=== PATIENT | female | born 1940 ===

== ENCOUNTER 2024-09-06 10:25 | Day surgery (SDC) | payer OTHER, SELFPAY ==
[2024-09-06] VITALS (10 sets, daily range): BP systolic 87–111; BP diastolic 48–88; BMI 18.5
[2024-09-06 11:27] LABS: Hematocrit 37.4 % (37.0-47.0); Hemoglobin 11.9 g/dL (12.0-16.0); Mean Corp Hgb Conc. 31.8 g/dL (33.0-37.0); Mean Corpuscular Hgb 30.1 pg (27.0-31.0); Mean Corpuscular Volume 94.4 fL (81.0-99.0); Mean Platelet Volume 11.9 fL (7.4-10.4); Platelet Count 250 10^3/uL (130-400); Red Blood Cell Count 3.96 10^6/uL (4.20-5.40); White Blood Cell Count 4.9 10^3/uL (4.8-10.8)
[2024-09-06 11:55] LABS: ALT (SGPT) 27 U/L (0-35); AST (SGOT) 60 U/L (14-36); Albumin 4.3 g/dl (3.5-5.0); Alkaline Phosphatase 158 U/L (38-126); Blood Urea Nitrogen 52 mg/dl (7-17); Calcium 9.3 mg/dl (8.4-10.2); Carbon Dioxide 25 mmol/L (22-30); Chloride 100 mmol/L (98-107); Estimated Creatinine Clearance 19 ml/min; Glucose 88 mg/dl (70-99); Sodium 135 mmol/L (135-145); Total Bilirubin 2.9 mg/dl (0.2-1.3); Total Protein 7.3 g/dl (6.3-8.2)
--- NOTE | 2024-09-06 12:50 | ITS.CL.PACE ---
Insulating Machine Operator - Pacemaker Implant
Pacemaker Implant
Procedure Report:
PACEMAKER IMPLANT REPORT
Primary Care Provider: Lamine Carr MD
Primary core composer feeder: Dr Lalo Wolf
Date of Procedure: September 06, 2024
Procedure:
Implantation of dual-chamber permanent pacemaker utilizing the left bundle branch for conduction system pacing
Indication/Diagnosis:
Non-reversible symptomatic bradycardia due to sinus node dysfunction with tachycardia-bradycardia syndrome.
She has permanent atrial fibrillation with rates that are often poorly controlled (tachycardia�bradycardia syndrome). Rapid ventricular rates have led to episodes of decompensated congestive heart failure. Unable to control her heart rates
consistently and adequately with medical therapy she is now referred for implantation of a permanent pacemaker followed by eventual AV kenji ablation.
After informed consent was obtained, 'time out' was called and confirmed, the patient was prepped and draped in a sterile fashion. Lidocaine with epi was used for local anesthesia. Central venous access was obtained via subclavian venipuncture. An
incision was made along the left chest and a pre-pectoral pocket was formed. Using a Seldinger technique and peel-away sheaths, the pacing leads were placed under fluoroscopic guidance.
Fluoroscopy was used to determine likely anatomic site for left bundle branch pacing. The Medtronic C315 sheath was used to deliver the Medtronic 3830 Selectsecure pacing lead with the helix exposed just exposed from the sheath tip during continuous
monitoring when pacemapping the septum during gentle clockwise rotation to obtain a paced QRS morphology of a W pattern in lead V1. Once the suspected optimal site was identified, lead deployment was performed with several rapid rotations as paced
QRS morphology was intermittently monitored until a paced QRS complex in lead V1 demonstrated development of an R wave, qR.
Unipolar pacing impedance dropped by approximately 100 ohms suggesting it had reached the left ventricular subendocardial.
Stable VEgm injury current is present throughout final lead position including at end of case, suggesting there was no perforation through the septum into the LV cavity.
Unipolar pacing impedance is 1000 Ohms
Unipolar pacing threshold is stable at 0.75 V @ 0.4 ms. Bipolar pacing threshold is also 0.75 at 0.4 ms
Final conduction system paced QRS complex duration is 102] ms
LVAT is 87 ms
Once testing (see below) showed adequate and stable function, the leads were secured using the suture sleeves. The pocket was liberally irrigated with antibiotic solution. The leads were connected to the generator header and the leads and
generator were placed within the pocket. Fluoroscopy confirmed stable lead position. The pocket was closed in the typical fashion.
Fluoroscopy was used to guide lead placement.
IMPLANTS:
Medtronic [id number], SN: [id number], Left Pectoral
Left Bundle: Medtronic 3830 , SN:[id number], Interventricular septum at LBB
DEVICE TESTING:
Sensing: RV 14 mV
Capture: RV 0.75 V@0.4ms
Ohms: RV 1045
FINAL PROGRAMMING
Amos Pacing: VVIR 60-130 ppm
COMPLICATIONS:
None
CONCLUSIONS:
Successful implant of single chamber permanent pacemaker utilizing Left Bundle Branch conduction system capture for ventricular resynchronization pacing.
RECOMMENDATIONS:
1. Post-op care (tele, CXR, IV abx)
2. In-Office wound check in 5-7 days
3. Return for AV node ablation October 03, 2023
Copy to:
Lamine Carr MD
Dr Lalo Wolf
[2024-09-06] MEDS: ALDACTONE 25 MG PO (15:43)
--- NOTE | 2024-09-06 15:48 | PTCARENOTE ---
Assumed care of pt upon tsf from CCL post PPM implant. Pt arrives awake and alert, Ox3. VSs, CM shows FE73-343's, POX 94% on RA. Single chamber Hiss lead PPM intact to left chest wall with Aquacel and compression dsg, immobilizer intact. Pt
denies any pain or discomfort at this time. Limb restrictions reviewed with pt.
--- NOTE | 2024-09-06 16:04 | CM ---
Chart reviewed. Patient is independent of ADLS, lives at [facility], ambulates with a RW and has elevator access. Plan is for the patient to return home. CM to follow
[2024-09-06] MEDS: NON-FORMULARY ITEM 75 MG PO (17:33)
[2024-09-06] MEDS: ProAmatine 5 MG PO (17:34)
[2024-09-06] MEDS: COLACE 100 MG PO (17:36)
[2024-09-06] MEDS: ANCEF 5 IV (18:12)
[2024-09-06] MEDS: TYLENOL 650 MG PO ×2 (18:12→22:32)
--- NOTE | 2024-09-06 18:33 | PTCARENOTE ---
Tylenol given as per NOV for 12/28 pain.
[2024-09-06] MEDS: LOPRESSOR 50 MG PO (19:55)
--- NOTE | 2024-09-06 21:09 | PTCARENOTE ---
Received pt at change of shift. Afib on the monitor, HR in the 90s. VSS. L chest aquacel and pressure dressing in place, no evidence of hematoma. No complaints from pt at this time, call morgan within reach.
[2024-09-07 03:08] VITALS: BP 95/64
[2024-09-07] MEDS: ANCEF 5 IV (03:12)
[2024-09-07 04:19] LABS: Hematocrit 34.7 % (37.0-47.0); Hemoglobin 11.6 g/dL (12.0-16.0); Mean Corp Hgb Conc. 33.4 g/dL (33.0-37.0); Mean Corpuscular Hgb 30.6 pg (27.0-31.0); Mean Corpuscular Volume 91.6 fL (81.0-99.0); Mean Platelet Volume 12.7 fL (7.4-10.4); Platelet Count 186 10^3/uL (130-400); Red Blood Cell Count 3.79 10^6/uL (4.20-5.40); Red Cell Dist. Width 17.1 % (11.5-14.5); White Blood Cell Count 6.1 10^3/uL (4.8-10.8)
[2024-09-07 05:32] LABS: Blood Urea Nitrogen 50 mg/dl (7-17); Calcium 8.7 mg/dl (8.4-10.2); Carbon Dioxide 17 mmol/L (22-30); Chloride 102 mmol/L (98-107); Estimated Creatinine Clearance 19 ml/min; Glucose 81 mg/dl (70-99); Magnesium 2.6 mg/dl (1.6-2.3); Sodium 133 mmol/L (135-145)
[2024-09-07] MEDS: SYNTHROID 75 MCG PO (05:58)
[2024-09-07] MEDS: LOPRESSOR 50 MG PO (07:17)
[2024-09-07] MEDS: PROTONIX 40 MG PO (07:17)
[2024-09-07] MEDS: FARXIGA 10 MG PO (07:17)
[2024-09-07 07:18] VITALS: BP 112/78
[2024-09-07] MEDS: ProAmatine 5 MG PO (07:21)
[2024-09-07 09:07] VITALS: BP 104/70
[2024-09-07] MEDS: LOPRESSOR 25 MG PO (09:09)
--- NOTE | 2024-09-07 09:22 | W.PN.CARDCBS ---
Addendum entered and electronically signed by Brock Daly MD 09/07/24 09:46:
Patient seen and examined
Agree with ASSEMBLY ASSOCIATE note and assessment
Agree with ASSEMBLY ASSOCIATE plan
Exam:
Pacemaker site clean dry and intact
Chest x-ray demonstrates stable lead position
Cor irregularly irregular
Telemetry reviewed
Agree with ASSEMBLY ASSOCIATE examination
Primary Care Provider: Lamine Carr MD
Primary pear picker: Dr Lalo Wolf
Impression:
Permanent Atrial fibrillation
Tachycardia-bradycardia syndrome
post DC PPM Medtronic 09/06/24
Chronic HFpEF
Severe MR
HLD
h/o LLE DVT post IVCF
orthostasis
Plan:
post PPM, site stable old drainage marked
tele Afib HR 90-120s
CXR no PTX
[id number] = 6
Will trial increasing metoprolol to 75mg bid, continue digoxin
Resume OAC tonight
Activity restrictions reviewed
Incision check 1 week
Plan to return for AVJ ablation 10/03/24
stable for home today
Lives alone, CM to set up VNA
Original Note:
Today's Communication / Plan
-
post PPM, Afib with uncontrolled rates
increase metoprolol 75mg bid
plan for AVJ ablation in 3 weeks
Impression / Plan
-
Primary Care Provider: Lamine Carr MD
Primary pear picker: Dr Lalo Wolf
Impression:
Permanent Atrial fibrillation
Tachycardia-bradycardia syndrome
post DC PPM Medtronic 09/06/24
Chronic HFpEF
Severe MR
HLD
h/o LLE DVT post IVCF
orthostasis
Plan:
post PPM, site stable old drainage marked
tele Afib HR 90-120s
CXR no PTX
[id number] = 6
Will trial increasing metoprolol to 75mg bid, continue digoxin
Resume OAC tonight
Activity restrictions reviewed
Incision check 1 week
Plan to return for AVJ ablation 10/03/24
stable for home today
Lives alone, CM to set up VNA
Progress Note - Aircraft Electrical Systems Specialist
Subjective
Date of Service: September 07, 2024
no cp, mild inc pain relief with tylenol
Objective
Labs:
09/07/24 03:36
09/07/24 03:36
Labs
Hgb 11.6 g/dL (12.0-16.0) L 09/07/24 03:36
Hct 34.7 % (37.0-47.0) L 09/07/24 03:36
Plt Count 186 10^3/uL (130-400) D 09/07/24 03:36
Sodium 133 mmol/L (135-145) L 09/07/24 03:36
Potassium 5.0 mmol/L (3.5-5.1) 09/07/24 03:36
BUN 50 mg/dl (7-17) H 09/07/24 03:36
Creatinine 1.6 mg/dL (0.6-1.0) H 09/07/24 03:36
Glucose 81 mg/dl (70-99) 09/07/24 03:36
Vital Signs and I&O:
Vital Signs
Temp Pulse Resp BP Pulse Ox
98.3 F 101 20 95/64 94
09/07/24 07:49 09/07/24 03:45 09/07/24 07:49 09/07/24 03:08 09/07/24 07:49
Vital Signs
Temp Pulse Resp BP Pulse Ox
98.3 F 101 20 95/64 94
09/07/24 07:49 09/07/24 03:45 09/07/24 07:49 09/07/24 03:08 09/07/24 07:49
Physical Exam
Physical Exam
NAD< AOX3
S1, S2, irreg irreg, 11/23 EDWINA
diminished b/l bases with fine crackles
SNTND bsx4
L CW dressing with marked old drainage, no HT
--- NOTE | 2024-09-07 10:22 | CM ---
CM following for DC planning needs.
Met w/ patient at bedside. VN ordered; discussed w/ patient.
Pt. resides at [facility] and would like to use their VN. Call to the community and spoke w/ program director/music director. They use [facility].
Call to [facility] to initiate referral, sent referral via fax.
Plan is to DC to home w/ [facility].
[2024-09-07 11:10] VITALS: BP 96/68
[2024-09-07 11:13] VITALS: BP 96/68
--- NOTE | 2024-09-07 11:23 | W.DS.TRANS ---
DC Summary - Radiologic Technology Program Director
-
Discharge Instructions:
Sleep Apnea Risk Low
Discharge Diagnosis/Procedures Pacemaker implant
Diet Low Cholesterol
Driving Restrictions No driving for 1 week
Bathing Restrictions OK to Shower
Instructions:
Stand-Alone Forms: DC Inst - Implanted Device
Changes to Home Medications: Yes
Discharge Medications:
DC Medications w/original date entered in [employer]
apixaban 5 mg tablet (Eliquis) 5 mg PO BID 09/06/24
digoxin 125 mcg (0.125 mg) tablet 125 mcg PO MOTH@1900 09/06/24
docusate sodium 50 mg capsule 50 mg PO DAILY 09/06/24
eltrombopag olamine 50 mg tablet (Promacta) 75 mg PO Q OTHER DAY 09/06/24
empagliflozin 10 mg tablet (Jardiance) 10 mg PO DAILY 09/06/24
furosemide 40 mg tablet 40 mg PO MOWEFR 09/06/24
levothyroxine 75 mcg capsule 75 mcg PO DAILY 09/06/24
midodrine 5 mg tablet 5 mg PO TID 09/06/24
pantoprazole 40 mg tablet,delayed release 40 mg PO DAILY 09/06/24
spironolactone 25 mg tablet 25 mg PO MOWEFR 09/06/24
metoprolol tartrate 50 mg tablet 75 mg (1.5 x 50 mg) PO BID #0 tabs 09/07/24
Home Medication Changes
increase metoprolol to 75mg bid
Pending Results: No
--- NOTE | 2024-09-07 13:05 | PTCARENOTE ---
Pt received this am with no c/o of any pain or discomfort. Left chest incision clean dry and intact with aqucell intact. Pressure dressing removed this am. Left arm immobilizer intact and removed prior to discharge. Pt discharged to home with her
daughter. Discharge instructions given and reviewed with good understanding.
== END 2024-09-07 12:59 | disposition home or self-care (01) ==
LOC: CATH 10:25
PROVIDERS: Nurse Practitioner Adult Health; ATTENDING PHYSICIAN Internal Medicine Cardiovascular Disease; FAMILY PHYSICIAN Family Medicine
DX: I49.5 Sick sinus syndrome (principal); I48.21 Permanent atrial fibrillation; Z79.01 Long term (current) use of anticoagulants; Z79.899 Other long term (current) drug therapy; Z79.890 Hormone replacement therapy; Z79.84 Long term (current) use of oral hypoglycemic drugs
CPT/HCPCS: 33208; 33207; 71045; 80048; 80053; 83735; 85027; 93005; C1769; C1786; C1887; C1892; C1898; Q9967

== ENCOUNTER 2024-10-02 17:48 | Inpatient (IN) | payer OTHER, SELFPAY ==
[2024-10-02 18:04] VITALS: BP 118/45
[2024-10-02 18:56] VITALS: BP 113/97
--- NOTE | 2024-10-02 19:27 | PTCARENOTE ---
Receved pt from [facility] via ambulance transport. VSS. Pt AAO x 3. Right brachial midline, from [facility], noted to be intact. Cardiology notified of admission.
[2024-10-02 22:13] LABS: Troponin I 0.045 ng/ml
[2024-10-02 22:35] VITALS: BP 111/74
[2024-10-02] MEDS: COLACE 100 MG PO (22:50)
[2024-10-03] VITALS (20 sets, daily range): BP systolic 72–124; BP diastolic 37–103; PULSE 87; O2SAT 93; BMI 18.6
--- NOTE | 2024-10-03 00:53 | HPS.HSE ---
Family Physician
-
Family Physician: NOT KNOW UNKNOWN - PT DOES
Chief Complaint
-
Late Entry - Patient seen and examined on 10/02/24 @ 8:30 PM.
SOB / Weakness
History of Present Illness
Patient is an 84y F with PMH significant for A-Fib, CHFpEF, hypothyroidism and hypotension who presents to as transfer from [facility] where she was originally admitted on 09/30/24 after a fall at home. Patient states that she had a fall with no
significant injury or trauma. She denies any prodrome of lightheadedness, chest pain, dyspnea, etc prior to the fall. No LOC or head injury. She was evaluated at [facility] where she was admitted for SOB and hypoxemia. Patient was treated for CHF and
also received IV abx for suspected RLL pneumonia. Patient received several days of IV diuresis and states that her dyspnea significantly improved. She had been scheduled for AV ablation here at on 10/03/24 and arrangements were made for her
transfer for that procedure.
Patient seen and examined in IVU where she is resting comfortably. She has no complaints at present.
She denies any chest pain, dyspnea, cough, fevers / chills, etc.
Medical History
Past Medical History
Past Medical History: Reports Other
Additional Past Medical History:
Permanent Atrial Fibrillation
Chronic HFpEF
Severe Mitral Regurgitation
Hypothyroidism
Hypotension
GERD
History of DVT
Past Surgical History: Reports Other
Additional Past Surgical History:
JEET
PPM Placement
Left Lumpectomy (benign)
Social History
Tobacco: Former Smoker (Quit smoking > 40 years ago.)
Alcohol: Occasional
Family History
Family History: Not pertinent
Allergies / Home Medications
Allergies reflects when Allergies were last updated in [employer].
Home Medications with original date entered in [employer]
Allergy/Medication List:
Allergies
Allergy/AdvReac Type Severity Reaction Status Date / Time
amiodarone Allergy Mild Shortness Verified 09/06/24 10:55
of Breath
Home Medications
apixaban 5 mg tablet (Eliquis) 5 mg PO BID 09/06/24
digoxin 125 mcg (0.125 mg) tablet 125 mcg PO MOTH@1900 09/06/24
docusate sodium 50 mg capsule 100 mg PO HS 09/06/24
eltrombopag olamine 50 mg tablet (Promacta) 75 mg PO Q OTHER DAY 09/06/24
furosemide 40 mg tablet 40 mg PO MOWEFR 09/06/24
levothyroxine 75 mcg capsule 75 mcg PO DAILY 09/06/24
midodrine 5 mg tablet 5 mg PO TID 09/06/24
pantoprazole 40 mg tablet,delayed release 40 mg PO DAILY 09/06/24
spironolactone 25 mg tablet 25 mg PO MOWEFR 09/06/24
metoprolol tartrate 50 mg tablet 50 mg PO BID 10/02/24
Review of Systems
-
History Source: Patient
A 12 point ROS was completed and negative except as noted: Yes
Constitutional: Denies Fever or Chills
Respiratory: Denies Cough or Trouble Breathing
Cardiac: Denies Chest Pain or Palpitations
Abdomen/GI: Denies Abdominal Pain, Nausea, Vomiting or Diarrhea
: Denies Dysuria or Flank Pain
Musculoskeletal: Denies Joint Pain or Edema
Neurological: Denies Dizzy or Headache
Psych: Denies Depression or Anxiety
Physical Exam
Vital Signs
Vital Signs
Temp Pulse Resp BP Pulse Ox
98.6 F 107 18 111/74 93
10/02/24 23:03 10/03/24 00:00 10/02/24 23:03 10/02/24 22:35 10/02/24 23:03
Physical Exam
General: Other (84y F in no acute distress.)
HEENT: Moist mucous membranes, PERRLA and Other (No JVD.)
Respiratory: Other (Few bibasilar rales < 1/4 up. No wheeze / rhonchi.)
Cardiac: S1/S2, Irregular Rhythm, Tachycardia and Murmur (II/ EDWINA)
GI: Soft, Non Tender, Non Distended and Normal Bowel Sounds
Musculoskeletal: No Clubbing, No Cyanosis and No Edema
Neuro: AO x 3
Laboratory Results
-
Laboratory Results
Troponin I 0.045 ng/ml H* 10/02/24 21:17
Impression/Plan
-
A/P: Patient is an 84y F with PMH significant for A-Fib, CHF and hypotension who presents to as transfer from [facility] for valuation of A-Fib with [id number] rates and CHF.
Permanent Atrial Fibrillation with Rapid Ventricular Response
- Admitted to IVU for further evaluation.
- Has failed multiple efforts at rate / rhythm control including amio which caused pulmonary toxicity.
- CHF exacerbated by poor rate control as noted below.
- Patient is scheduled for AV node ablation 10/03/24.
- Cardiology / EP consultation for additional recommendations / management.
- Continue current rate control medications for now.
- Hold Eliquis pending intervention / procedure.
Acute on Chronic HFpEF
- s/p several days of IV diuresis at [facility] and clinically much improved.
- Does not appear grossly volume overloaded at present.
- Was on IV Lasix 40mg BID - will decrease to daily dosing for now and follow I/Os, daily weights, etc.
- Transition back to PO regimen if volume status remains stable.
- Cardiology evaluation as noted above.
Possible RLL Pneumonia
- Was on abx at [facility] for possible RLL pneumonia.
- Afebrile, non-toxic appearing and with no cough or other symptoms that cannot be attributed to CHF.
- CXR findings likely represent compressive atelectasis secondary to pleural effusion.
- CT done at [facility] (09/30/24) with no mention of infiltrate / opacity / pneumonia.
- Would observe off of further abx for now and continue to treat Cardiac issues.
Chronic Hypotension
- Stable. Tolerating diuresis at [facility] very well.
- Continue current midodrine.
Hypothyroidism
- Stable. Continue T4 supplementation.
DVT Prophylaxis
History of DVT
- SCDs while Eliquis on hold. Resume when OK with Cardiology. Patient has IVC Filter in place.
Code Status: Full
[2024-10-03 03:14] LABS: Hemoglobin 11.1 g/dL (12.0-16.0); Mean Corp Hgb Conc. 31.7 g/dL (33.0-37.0); Mean Corpuscular Hgb 27.5 pg (27.0-31.0); Mean Corpuscular Volume 86.8 fL (81.0-99.0); Platelet Count 244 10^3/uL (130-400); Red Blood Cell Count 4.03 10^6/uL (4.20-5.40); Red Cell Dist. Width 17.4 % (11.5-14.5); White Blood Cell Count 5.4 10^3/uL (4.8-10.8)
[2024-10-03 03:36] LABS: Blood Urea Nitrogen 44 mg/dl (7-17); Calcium 8.4 mg/dl (8.4-10.2); Carbon Dioxide 25 mmol/L (22-30); Chloride 97 mmol/L (98-107); Estimated Creatinine Clearance 16 ml/min; Glucose 91 mg/dl (70-99); Magnesium 2.2 mg/dl (1.6-2.3); Phosphorus 3.6 mg/dl (2.5-4.5); Sodium 134 mmol/L (135-145); eGFR 27.78
[2024-10-03 03:49] LABS: Troponin I 0.043 ng/ml
--- NOTE | 2024-10-03 04:12 | PTCARENOTE ---
Pt received at change of shift. Afib on tele with HRs low 100s, occasionally up to 140s with activity. No complaints of pain or SOB at this time. RUE midline from GV[facility] flushed and dressing c/d/i, site documented in worklist. LUE dressing removed
and wound assessed and documented. Skin tear present, cleansed with saline and redressed, new dressing remains c/d/i. Ambulating with stand-by assist and rolling walker. Plan of care and pt verbalizes understanding. NPO since midnight for
ablation in AM. Call morgan within reach.
--- NOTE | 2024-10-03 07:46 | CON.CAR ---
Addendum entered and electronically signed by Davonte Wilburn MD 10/03/24 09:32:
Patient seen, interviewed and examined by me.
Not acute distress
Irregular rate and rhythm with normal S1 and S2, no S3 no S4. There is a grade 1/6 apical holosystolic murmur and no rubs. PMI is normally placed.
Lungs are clear to auscultation bilaterally without wheezes rales or rhonchi.
Abdomen soft nontender nondistended with normoactive bowel sounds
Extremities show trace pretibial edema bilaterally no clubbing or cyanosis.
Neurologic exam is grossly nonfocal.
She has had multiple recurrences of heart failure exacerbated by atrial fibrillation with rapid ventricular rates. Despite pacemaker implantation and attempted up titration of AV kenji blocking agents she continues to have exacerbations of
congestive heart failure related to rapid ventricular rates. Hypotension has limited the up titration of AV kenji blocking agents to some degree. Given difficulty in controlling her ventricular rates which have resulted in congestive heart
failure, I recommended that we proceed next towards AV kenji ablation. Of note she recently had permanent pacemaker implanted September 06, 2024. There had been plan as an outpatient for AV kenji ablation. She presented to [facility]
several days ago with exacerbation of heart failure and rapid ventricular rates and therefore was transferred rather urgently to get her AV node ablation done today. Regarding her heart failure, she has been diuresed at [facility] and
symptoms have improved significantly. Furthermore there have been some concern for pneumonia and she received essentially prophylactic antibiotics for several days, now off of antibiotics and afebrile. It is likely that the majority of her
symptoms are related to congestive heart failure which are now improved with diuresis. Continue IV diuresis for now and consideration to change to oral diuretics after AV kenji ablation.
Original Note:
Consultation
Consultation Request
Date/Time Consultation Performed: 10/03/24
Requesting Provider: Dr. Morataya
Performing Provider: Ana Green PA-C for Dr. Loc Wilburn
Reason for Consultation: AVJ ablation
Medical History
-
Chief Complaint: fall
History of Present Illness:
Patient is an 84 yo F with PMH of HFpEF, afib, CKD, anemia, hypothyroidism who presented to [facility] on 09/30/24 due to a fall at home. Reports she had been feeling weak and fell on her buttocks and had a LUE skin tear. Denies hitting her head or LOC with
event. She was admitted for SOB and hypoxia - diuresed with IV lasix and treated with abx for possible PNA. Reports her breathing is much improved. She also had mild troponin elevation at [facility], troponin 57�equivalent to 0.057 by assay here. No
chest pain. She was transferred to last evening as she is scheduled for AVJ ablation today with Dr. Loc Wilburn. She already has PPM in place. She has been NPO since midnight. Currently in afib with suboptimal HRs. Primary clinical laboratory technologist is
Luciano.
PMH:
Chronic heart failure preserved EF
Severe MR
Permanent atrial fibrillation
s/p Medtronic single chamber pacemaker 09/06/24
CKD
DVT/PE s/p IVC filter
Chronic anemia
Hypothyroidism
Orthostatic hypotension
History of concern for Amio lung toxicity
History of SIADH
History of hysterectomy
Past Medical History
Past Medical History: Other (in HPI)
Social History
Tobacco: Former Smoker
Alcohol: Occasional
Employment: Retired
Family History
Family History: Other (afib)
Allergies / Home Medications
Allergy/AdvReac Type Severity Reaction Status Date / Time
amiodarone Allergy Mild Shortness Verified 09/06/24 10:55
of Breath
�Medication �Instructions �Recorded �Confirmed �Type
apixaban 5 mg tablet (Eliquis) 5 mg PO BID 09/06/24 10/02/24 History
digoxin 125 mcg (0.125 mg) tablet 125 mcg PO MOTH@1900 09/06/24 10/02/24 History
docusate sodium 50 mg capsule 100 mg PO HS 09/06/24 10/02/24 History
eltrombopag olamine 50 mg tablet 75 mg PO Q OTHER DAY 09/06/24 10/02/24 History
(Promacta)
furosemide 40 mg tablet 40 mg PO MOWEFR 09/06/24 10/02/24 History
levothyroxine 75 mcg capsule 75 mcg PO DAILY 09/06/24 10/02/24 History
midodrine 5 mg tablet 5 mg PO TID 09/06/24 10/02/24 History
pantoprazole 40 mg tablet,delayed 40 mg PO DAILY 09/06/24 10/02/24 History
release
spironolactone 25 mg tablet 25 mg PO MOWEFR 09/06/24 10/02/24 History
metoprolol tartrate 50 mg tablet 50 mg PO BID 10/02/24 10/02/24 History
Review of Systems
-
History Source: Patient
All other systems: Negative unless noted
Physical Exam
Vital Signs
Temp Pulse Resp BP Pulse Ox
98.2 F 121 16 104/74 98
10/03/24 07:27 10/03/24 02:33 10/03/24 07:27 10/03/24 02:33 10/03/24 07:27
Lab Results
10/03/24 03:04
10/03/24 03:04
Troponin I 0.043 ng/ml H* 10/03/24 03:04
Physical Exam
General: No Apparent Distress and Comfortable
HEENT: Normocephalic, Anicteric and Moist Mucous Membranes
Respiratory: Clear and Non Labored Respirations
Cardiac: S1/S2, Irregular Rhythm and Murmur
GI: Soft, Non Tender, Non Distended and Normal Bowel Sounds
Musculoskeletal: No Clubbing, No Cyanosis and No Edema
Skin: Warm and Dry
Neuro: AO x 3
Impression / Plan
-
Primary Test Fixture Designer: Dr. Wolf
Primary EP: Dr. Loc Wilburn
Assessment:
Permanent atrial fibrillation with suboptimal HR control
Admitted to [facility] 09/30/24 for fall, CHF
Transferred to 10/02/24 for preplanned AVJ ablation on 10/03/24
s/p Medtronic single chamber pacemaker 09/06/24
Chronic heart failure preserved EF
Severe MR
CKD
DVT/PE s/p IVC filter
Chronic anemia/MDS
Hypothyroidism
Orthostatic hypotension
History of concern for Amio lung toxicity
History of SIADH
History of hysterectomy
Severe protein calorie malnutrition
ECHO 05/16/24: EF 55 to 60%, moderate TR, severe MR, moderate AI
Plan:
-Patient presented to [facility] 09/30/2024 with a fall and was found to be hypoxic and admitted for acute heart failure and diuresed. She reports feeling much improved. She was transferred to [facility] last evening in preparation
for preplanned AVJ ablation scheduled for today 10/03/2024
-reviewed records from [facility] admission from 09/30-10/02/24 including progress notes, EKGs, Chest CT, bloodwork
-N.p.o. for AVJ today
-Status post Medtronic single-chamber pacemaker 09/06/2024
-Eliquis on hold. Would resume postprocedure as able. Of note she came in on Eliquis 5 mg twice daily, however based on age, weight, and Cr should be on 2.5 mg twice daily.
-proBNP at [facility] was [id number]. [address] with mod R pleural effusion and small L pleural effusion. on room air. Would consider transition to p.o. Lasix in next 24-48 hours. Currently on 40 mg IV daily. Prior to admission was on 40 mg Wednesday
Wednesday.
-For rate control is currently on Lopressor 75 mg twice daily and digoxin 125 mcg p.o. Wednesday and . Will determine rate control regimen post AVJ
-Was also on spironolactone 25 mg p.o. Wednesday prior to admission, which is presently on hold. Cr 1.8, baseline unknown
-She has orthostatic hypotension and is chronically on midodrine 5 mg 3 times daily. follow post procedure
-last echo from 04/2024 as above
-unclear if she is felt to be a candidate for mitraclip, consider eval
-d/w nursing
Data Reviewed
-
EKG: Tracing Personally Visualized and interpreted
CT Scan: Report Reviewed by me
Medical Tests (Nuc Med, Echo etc): Report Reviewed by me
Labs: Labs Reviewed by me
Old Records: Reviewed
--- NOTE | 2024-10-03 07:50 | PTCARENOTE ---
Assumed care of pt from prev nsg shift; Pt AAOX3 w/no c/o CP or SOB. Pt w/VS stable w/HR in the 90's-110's at rest & in the 120's-130's w/activity. Pt's BP 105/71 this AM. Pt is Afib w/RVR on telemetry. Pt NPO since 0000 for cardiac ablation this
AM. Plan of care discussed w/pt & questions answered. Pt w/call morgan within reach & plan of care ongoing.
--- NOTE | 2024-10-03 08:51 | W.PN.UPDATE ---
Update Note
Progress Note Update
Non-billable addendum (H&P submitted around 1230 AM)
Patient admitted at [facility] for acute CHF and possible PNA
transferred here for AVJ ablation for Afib (hx of PPM)
Assessment:
Permanent Atrial Fibrillation with Rapid Ventricular Response
- Has failed multiple efforts at rate / rhythm control including amio which caused pulmonary toxicity.
- CHF exacerbated by poor rate control
- noted does have a PPM
- Patient is NPO for AV node ablation 10/03/24.
- Cardiology/EP following
- Continue metoprolol/digoxin for now.
- Hold Eliquis pending intervention/procedure.
Acute on Chronic HFpEF
- s/p several days of IV diuresis at [facility] and clinically much improved.
- Does not appear grossly volume overloaded at present.
- continue IV Lasix 40mg daily - requires intensive monitoring of I/Os, weights, lytes.
- likely transition back to PO regimen in 24-48 hours
- continue BB, hold Aldactone
- Cardiology following
Possible RLL Pneumonia
- Was on abx at [facility] for possible RLL pneumonia.
- Afebrile, non-toxic appearing and with no cough or other symptoms that cannot be attributed to CHF.
- CXR findings likely represent compressive atelectasis secondary to pleural effusion.
- CT done at [facility] (09/30/24) with no mention of infiltrate / opacity / pneumonia.
- continue to observe off of further abx for now and continue to treat Cardiac issues.
Suspected CKD 3b
- monitor Cr
Nonischemic myocardial injury in setting of rapid Afib (in setting of CKD)
- trop flat at .046 (previously .057 at [facility])
Chronic Hypotension
- Stable. Tolerating diuresis at [facility] very well.
- Continue current midodrine.
Hypothyroidism
- Stable. Continue T4 supplementation.
Severe protein calorie malnutrition
DVT Prophylaxis
History of DVT
- SCDs while Eliquis on hold. Resume when OK with Cardiology. Patient has IVC Filter in place.
Chronic anemia/MDS
Code Status: Full
[2024-10-03] MEDS: MUCINEX PO (09:10)
[2024-10-03] MEDS: ProAmatine 5 MG PO ×2 (09:23→16:04)
[2024-10-03] MEDS: SYNTHROID 75 MCG PO (09:23)
[2024-10-03] MEDS: LOPRESSOR 75 MG PO (09:24)
[2024-10-03] MEDS: PROTONIX 40 MG PO (09:25)
--- NOTE | 2024-10-03 15:16 | ITS.CL.ABL ---
[facility] Cook - Ablation
Ablation
Procedure Report:
ELECTROPHYSIOLOGIC EVALUATION AND POSSIBLE ABLATION
Date of procedure: October 03, 2024
Primary cloth weigher: Dr. Lalo Wolf
INDICATION: Atrial fibrillation with rapid ventricular rates uncontrolled with attempted medical therapy and often leading to decompensated congestive heart failure requiring hospital admissions.
'TIME-OUT': called and confirmed.
SEDATION/ANESTHESIA:
PROCEDURE:
Ultrasound Guidance with real-time visualization of needle insertion and vessel patency performed by tx for femoral venous Vascular Access. Images were taken and saved for the patient's permanent record. Imaging findings typical femoral venous
anatomy. Direct visualization of needle puncture into the femoral vein was observed and recorded.
The Medtronic single-chamber permanent pacemaker was interrogated and reprogrammed from VVIR 60 to 40 ppm.
After assuring good capture parameters, a deflectable-tip mapping/ablation catheter was advanced to the medial tricuspid annulus region of the right atrium where a HIS potential was identified. The catheter was slightly withdrawn from this location
to a site more proximal on the right atrial septum, about jail between the HIS recording position and that of the coronary sinus os. At this location, a small HIS potential was evident along with large amplitude atrial deflections and a
relatively small ventricular electrogram. Radiofrequency energy was applied at this site using a temperature-controlled system resulted in an accelerated junctional rhythm followed by deceleration and heart block. At the conclusion of this, there
is no QRS escape.
The Medtronic single-chamber permanent pacemaker was interrogated and found to have stable function compared to the pre-ablation findings.
Pacing reprogrammed to VVIR 80-130 ppm.
COMPLICATIONS: None
SUMMARY:
Ultrasound guided vascular access.
Interrogation and reprograming of of single-chamber permanent pacemaker
Successful mapping and ablation of the AV node
RECOMMENDATIONS:
Maintain base pacing rate at 80 bpm for the next 2 to 3 months then there can be consideration for reducing base pacing rate.
Resume oral anticoagulation
Consideration for discharge home once heart failure has improved, this is likely within the next 24 hours.
Copy:
Dr. Lalo Wolf
--- NOTE | 2024-10-03 15:22 | W.PN.UPDATE ---
Update Note
Progress Note Update
Patient is now status post AV node ablation for control of her heart rate. Normal function of the pacemaker post ablation. Will proceed as follows:
-Discontinue digoxin
-Wean down metoprolol with consideration of discontinuation of metoprolol
Regarding heart failure management it looks like she is diuresed reasonably well and her creatinine has bumped somewhat.
-Stop IV Lasix and start oral Lasix 40 mg daily to begin tomorrow
--- NOTE | 2024-10-03 15:30 | PTCARENOTE ---
Rec'd report from Akshat in the EP lab; rec'd prt back AAOX3 w/no c/o CP or SOB. Pt's VS stable w/HR now 80 & BP upon arrival to floor 109/37. Pt is now V-paced. Pt's R groin site w/fig of 8 intact w/dressing C/D/I, w/no signs or symptoms of bleeding
or hematoma. Pt's EKG completed & pt instructed on strict bedrest orders for 4 hrs. Pt verbalized her understanding. Carawick placed & pt's earlier ordered dose of IV Lasix administered. Pt w/call morgan within reach & daughter at bedside.
--- NOTE | 2024-10-03 15:48 | CM ---
spoke to pt in room, she is prev [facility], lives in [facility]. she denies any dcplanning needs , has a rollator she uses. plan is for dc to home when medically stable.
[2024-10-03] MEDS: LASIX 40 MG IV (15:58)
[2024-10-03] MEDS: FLUSH (NSS) 2 FLUSH IV (16:05)
[2024-10-03] MEDS: ProAmatine PO (16:05)
[2024-10-03] MEDS: LOPRESSOR 50 MG PO (20:50)
[2024-10-03] MEDS: MUCINEX 1200 MG PO (20:50)
[2024-10-03] MEDS: COLACE 100 MG PO (21:02)
--- NOTE | 2024-10-04 00:33 | PTCARENOTE ---
Assumed care of the patient @ 1900. Pt AAOx3 Paced rhythm. VSS Right groin figure 8 stitch removed and dressing c/d/i. No hematoma. 1 person assist with walker to bathroom. Call morgan within reach.
[2024-10-04 02:17] VITALS: BP 98/61
[2024-10-04 02:34] VITALS: BMI 18.5
[2024-10-04 03:51] LABS: Hematocrit 34.8 % (37.0-47.0); Hemoglobin 11.1 g/dL (12.0-16.0); Mean Corp Hgb Conc. 31.9 g/dL (33.0-37.0); Mean Corpuscular Hgb 27.6 pg (27.0-31.0); Mean Corpuscular Volume 86.6 fL (81.0-99.0); Mean Platelet Volume 11.5 fL (7.4-10.4); Platelet Count 238 10^3/uL (130-400); Red Blood Cell Count 4.02 10^6/uL (4.20-5.40); Red Cell Dist. Width 17.2 % (11.5-14.5); White Blood Cell Count 6.1 10^3/uL (4.8-10.8)
[2024-10-04 04:13] LABS: Blood Urea Nitrogen 51 mg/dl (7-17); Calcium 8.2 mg/dl (8.4-10.2); Carbon Dioxide 27 mmol/L (22-30); Chloride 95 mmol/L (98-107); Estimated Creatinine Clearance 16 ml/min; Glucose 93 mg/dl (70-99); Potassium 4.2 mmol/L (3.5-5.1); Sodium 133 mmol/L (135-145); eGFR 27.78
[2024-10-04] MEDS: SYNTHROID 75 MCG PO (06:20)
[2024-10-04 07:00] VITALS: BP 108/85
--- NOTE | 2024-10-04 07:36 | W.PN.CARDCBS ---
Addendum entered and electronically signed by Davonte Wilburn MD 10/04/24 10:17:
Patient seen, interviewed and examined by me.
She tells me that she feels well this morning and that she feels so good she wants to go home today.
No chest pain shortness of breath palpitations or dizziness.
Well-appearing, no acute distress
Regular rate and rhythm with normal S1 and S2, no S3 no S4. There is a grade 1/6 apical holosystolic murmur and no rubs. PMI is normally placed.
Lungs are clear to auscultation bilaterally without wheezes rales or rhonchi.
Abdomen soft nontender nondistended with normoactive bowel sounds
Extremities show trace pretibial edema bilaterally no clubbing or cyanosis.
Neurologic exam is grossly nonfocal.
She is now status post AV kenji ablation to control rapid rates in atrial fibrillation.
This now will allow us to simplify her medical regimen.
We are stopping digoxin and weaning down Lopressor. She had been on 75 mg twice daily. At discharge were going to reduce this to 50 mg twice daily and she will follow-up with her primary picking belt operator to consider further dose reduction and even
potentially discontinuation of beta-gokul. It is hopeful that this will improve her overall symptoms and may even reduce her propensity towards orthostasis but for now recommend maintaining midodrine with close outpatient follow-up.
She has been on spironolactone as an outpatient this has been on hold due to renal insufficiency. This can be followed as an outpatient regarding consideration for resuming spironolactone if clinically indicated and renal function allows.
Overall heart failure has markedly improved. We have stopped intravenous Lasix and transitioned her to oral Lasix. She can be discharged to home on Lasix 40 mg daily. Of note, patient had been on Lasix 40 mg every other day but given her recent
heart failure exacerbation increasing this to 40 mg daily is reasonable but she will need close outpatient follow-up. I discussed this with both the patient and her daughter who is at the bedside yesterday. They will follow her weights very
closely at home and report those to her primary picking belt operator.
All of her questions have been answered.
From a cardiac standpoint she appears ready for discharge to home today.
Original Note:
Today's Communication / Plan
-
s/p AVJ ablation 10/03
no digoxin or spironolactone upon DC
lopressor 50mg BID
eliquis 2.5mg BID
midodrine 5mg TID
OP cardiac follow up arranged
Impression / Plan
-
Primary Senior Devops Engineer: Dr. Wolf
Primary EP: Dr. Loc Wilburn
Assessment:
Permanent atrial fibrillation with suboptimal HR control
Admitted to [facility] 09/30/24 for fall, CHF
Transferred to 10/02/24 for preplanned AVJ ablation on 10/03/24
s/p Medtronic single chamber pacemaker 09/06/24
s/p AVJ ablation 10/03/24
Chronic heart failure preserved EF
Severe MR
CKD
DVT/PE s/p IVC filter
Chronic anemia/MDS
Hypothyroidism
Orthostatic hypotension
History of concern for Amio lung toxicity
History of SIADH
History of hysterectomy
Severe protein calorie malnutrition
ECHO 05/16/24: EF 55 to 60%, moderate TR, severe MR, moderate AI
Plan:
-Patient presented to [facility] 09/30/2024 with a fall and was found to be hypoxic and admitted for acute heart failure and diuresed. She reports feeling much improved. She was transferred to [facility] last evening in preparation
for preplanned AVJ ablation scheduled for 10/03/2024
-s/p AVJ ablation 10/03/24
-digoxin stopped
-lopressor decreased to 50mg BID. consider further decrease as OP
-eliquis resumed at lower dose of 2.5mg BID
-transitioned to po lasix 40mg daily. prior to admission on po lasix 40mg MWF. discussed importance of following daily weights at home
-OP spironolactone remains on hold given Cr of 1.8.
-BMP in 1 week
-continue OP midodrine for chronic orthostatic hypotension
-she was previously deemed to not be a candidate for mitraclip. conservative mgmt of MR
-OP cardiac follow up arranged
-ok for DC to home today from cardiac standpoint
-d/w nursing
Progress Note - Senior Devops Engineer
Subjective
Date of Service: October 04, 2024
feeling well. ambulatory in room without issues
Objective
Labs:
10/04/24 03:42
10/04/24 03:42
Labs
Hgb 11.1 g/dL (12.0-16.0) L 10/04/24 03:42
Hct 34.8 % (37.0-47.0) L 10/04/24 03:42
Plt Count 238 10^3/uL (130-400) 10/04/24 03:42
Sodium 133 mmol/L (135-145) L 10/04/24 03:42
Potassium 4.2 mmol/L (3.5-5.1) 10/04/24 03:42
BUN 51 mg/dl (7-17) H 10/04/24 03:42
Creatinine 1.8 mg/dL (0.6-1.0) H 10/04/24 03:42
Glucose 93 mg/dl (70-99) 10/04/24 03:42
Troponins
10/02/24 10/03/24 10/03/24
21:17 03:04 08:45
Troponin I 0.045 H* 0.043 H* Cancelled
Vital Signs and I&O:
Vital Signs
Temp Pulse Resp BP Pulse Ox
98.2 F 80 16 108/85 96
10/04/24 07:05 10/04/24 07:00 10/04/24 07:05 10/04/24 07:00 10/04/24 07:05
Vital Signs
Temp Pulse Resp BP Pulse Ox
98.2 F 80 16 108/85 96
10/04/24 07:05 10/04/24 07:00 10/04/24 07:05 10/04/24 07:00 10/04/24 07:05
Intake & Output
10/01/24 10/02/24 10/03/24 10/04/24
07:59 07:59 07:59 07:59
Intake Total 480 / 480 720 / 720
Balance 480 / 480 720 / 720
Physical Exam
Physical Exam
GEN: No distress, awake, alert, oriented x3
HEENT: supple, anicteric, mmm, eomi
LUNGS: CTA B/L, no wheezes
CV: Reg, S1/S2, 2/6 murmur
ABD: soft, BS+, NT/ND
EXT: No cyanosis, clubbing, edema
NEURO: Gross non-focal
SKIN: Warm, pink, dry. No rash. Groin site c/d/i
--- NOTE | 2024-10-04 08:00 | PTCARENOTE ---
Assumed care of pt from prev nsg shift; Pt AAOX3 w/no c/o CP or SOB. Pt w/VS stable w/HR 80. BP this AM 108/85. Pt is V-paced on telemetry. Pt w/R groin access site w/dressing C/D/I w/no signs or symptoms of bleeding or hematoma. Pt w/call morgan
within reach & plan of care ongoing.
[2024-10-04] MEDS: ELIQUIS 2.5 MG PO (08:42)
[2024-10-04] MEDS: MUCINEX 1200 MG PO (08:42)
[2024-10-04] MEDS: LASIX 40 MG PO (08:43)
[2024-10-04] MEDS: PROTONIX 40 MG PO (08:43)
[2024-10-04] MEDS: ProAmatine 5 MG PO ×2 (08:43→12:44)
[2024-10-04] MEDS: LOPRESSOR 50 MG PO (08:43)
[2024-10-04 08:51] LABS: ALT (SGPT) < 10 U/L (0-35); AST (SGOT) 30 U/L (14-36); Albumin 3.4 g/dl (3.5-5.0); Alkaline Phosphatase 142 U/L (38-126); Total Bilirubin 1.9 mg/dl (0.2-1.3); Total Protein 6.4 g/dl (6.3-8.2)
--- NOTE | 2024-10-04 11:13 | W.PN.HOSP.TC ---
Today's Communication/Plan
-
dc to home
Assessment / Plan
Assessment / Plan
Assessment:
Permanent Atrial Fibrillation with Rapid Ventricular Response
- Has failed multiple efforts at rate / rhythm control including amio which caused pulmonary toxicity.
- CHF exacerbated by poor rate control
- noted does have a PPM
- s/p AV node ablation 10/03/24.
- Cardiology/EP following
- Continue metoprolol at reduced dose
- stop Digoxin
- resume Eliquis
Acute on Chronic HFpEF
- s/p several days of IV diuresis at [facility] and clinically much improved.
- Does not appear grossly volume overloaded at present.
- s/p IV Lasix 40mg daily - now continue PO Lasix 40mg daily. Labs in 1 week
- hold Aldactone at discharge
- continue BB
- Cardiology following
Possible RLL Pneumonia
- Was on abx at [facility] for possible RLL pneumonia.
- Afebrile, non-toxic appearing and with no cough or other symptoms that cannot be attributed to CHF.
- CXR findings likely represent compressive atelectasis secondary to pleural effusion.
- CT done at [facility] (09/30/24) with no mention of infiltrate / opacity / pneumonia.
- continue to observe off of further abx for now and continue to treat Cardiac issues.
Suspected CKD 3b
- monitor Cr
Nonischemic myocardial injury in setting of rapid Afib (in setting of CKD)
- trop flat at .046 (previously .057 at [facility])
Chronic Hypotension
- Stable. Tolerating diuresis at [facility] very well.
- Continue current midodrine.
Hypothyroidism
- Stable. Continue T4 supplementation.
Severe protein calorie malnutrition
DVT Prophylaxis
History of DVT
- Eliquis. Patient has IVC Filter in place.
Chronic anemia/MDS
Code Status: Full
More than 30 minutes spent in discharge including
Final examination of the patient
Summarizing hospital stay
Instructions for continuing care to all relevant caregivers
Preparation of discharge records, prescriptions, and referral forms
Total time spent (in minutes):41
Anticipated Discharge: Today
Subjective/Interval History
-
Date of Service: October 04, 2024
no complaints
feels comfortable
Objective Data
-
Labs:
Laboratory Results
10/04/24
03:42
WBC 6.1
Hgb 11.1 L
Hct 34.8 L
Plt Count 238
Sodium 133 L
Potassium 4.2
Chloride 95 L
Carbon Dioxide 27
BUN 51 H
Creatinine 1.8 H
Glucose 93
Calcium 8.2 L
Total Bilirubin 1.9 H
AST 30
ALT < 10
Alkaline Phosphatase 142 H
Vital Signs:
Vital Signs
Temp Pulse Resp BP Pulse Ox
98.2 F 80 16 108/85 96
10/04/24 07:05 10/04/24 07:00 10/04/24 07:05 10/04/24 07:00 10/04/24 07:05
I&O
10/03/24 10/04/24 10/05/24
06:59 06:59 06:59
Intake Total 480 / 480 720 / 720
Balance 480 / 480 720 / 720
Physical Exam
-
General: No Apparent Distress
HEENT: Normocephalic and Atraumatic
Respiratory: Negative Wheezes
Cardiac: Regular Rhythm and S1/S2
GI: Soft and Nontender
Neuro: AO x 3
Hematologic / Lymphatic: No Lymphadenopathy
Psych: Calm
Data Reviewed
-
Total Time Spent with Patient (in minutes): 41
Labs: Labs Reviewed by me
--- NOTE | 2024-10-04 11:23 | W.DS.TRANS ---
DC Summary - Mental Health Program Specialist
-
Discharge Instructions:
Discharge Diagnosis/Procedures Afib with RVR s/p AV node ablation 10/03
Diet 2 Gram Sodium,Low Cholesterol
Activity No restrictions
Driving Restrictions No driving for 24 hours
Bathing Restrictions None
Instructions: *PCP/Other Compo Caster Heart Failure Instructions
Stand-Alone Forms: DC Instructions- Cath/EP Lab
Changes to Home Medications: Yes
Discharge Medications:
DC Medications w/original date entered in [facility]
docusate sodium 50 mg capsule 100 mg PO HS Gastrointestinal Issue 09/06/24
eltrombopag olamine 50 mg tablet (Promacta) 75 mg PO Q OTHER DAY Autoimmune Disorder 09/06/24
levothyroxine 75 mcg capsule 75 mcg PO DAILY Thyroid 09/06/24
midodrine 5 mg tablet 5 mg PO TID Blood Pressure 09/06/24
pantoprazole 40 mg tablet,delayed release 40 mg PO DAILY Gastrointestinal Issue 09/06/24
apixaban 2.5 mg tablet (Eliquis) 2.5 mg PO BID #60 tabs 10/04/24
furosemide 40 mg tablet 40 mg PO DAILY #30 tabs 10/04/24
metoprolol tartrate 50 mg tablet 50 mg PO BID Blood Pressure #60 tabs 10/04/24
Home Medication Changes
reduce BB, Eliquis to age appropriate dosing. Lasix to daily
stop Digoxin and Aldactone
Pending Results: No
Total time spent discharging patient (in min): 41
[2024-10-04 11:46] VITALS: BP 108/73
--- NOTE | 2024-10-04 12:07 | CM ---
Addendum entered by NICHOLAS Tinsley 10/04/24 14:12:
[facility] able to accept.
Addendum entered by NICHOLAS Tinsley 10/04/24 12:12:
Correction to below: HOME w/ [facility]
Original Note:
CM following for DC planning needs.
Met w/ patient at bedside. Plan for DC to home today. Pt. has transport home.
Offered VN; patient agreeable and would prefer [facility]/ she has used this in the past and they contract w/ her facility, [facility].
Referral made to [facility]. Await response. Message left on intake voicemail.
Plan: HOME w/ [facility] [place].
--- NOTE | 2024-10-04 14:59 | PTCARENOTE ---
Pt's D/C instructions & care plan faxed to [facility] as requested by family. Pt's Midline D/C'd by VAT & telemetry monitored D/C'd by this RN. D/C instructions discussed w/pt & pt's daughter. Pt taken her via wheelchair by staff with
daughter driving her home.
== END 2024-10-04 15:06 | disposition home health service (06) | DRG 273 ==
LOC: IVU 17:48
PROVIDERS: Hospitalist; ADMITTING PHYSICIAN Internal Medicine Cardiovascular Disease; ATTENDING PHYSICIAN Internal Medicine
PROC: 02K83ZZ Map Conduction Mechanism, Percutaneous Approach (ICD-10-PCS; 2024-10-03)
PROC: 02583ZZ Destruction of Conduction Mechanism, Percutaneous Approach (ICD-10-PCS; 2024-10-03)
DX: I48.21 Permanent atrial fibrillation (principal); E43 Unspecified severe protein-calorie malnutrition; I50.33 Acute on chronic diastolic (congestive) heart failure; I5A Non-ischemic myocardial injury (non-traumatic); Z68.1 Body mass index [BMI] 19.9 or less, adult; E03.9 Hypothyroidism, unspecified; I95.1 Orthostatic hypotension; I34.0 Nonrheumatic mitral (valve) insufficiency; D63.1 Anemia in chronic kidney disease; K21.9 Gastro-esophageal reflux disease without esophagitis; N18.32 Chronic kidney disease, stage 3b; Z95.828 Presence of other vascular implants and grafts; Z95.0 Presence of cardiac pacemaker; Z87.891 Personal history of nicotine dependence; Z86.718 Personal history of other venous thrombosis and embolism; Z79.899 Other long term (current) drug therapy; Z79.01 Long term (current) use of anticoagulants; Z79.890 Hormone replacement therapy; Z87.01 Personal history of pneumonia (recurrent)
CPT/HCPCS: 76937; 80048; 80053; 83735; 84100; 84484; 85027; 87070; 93005; 93287; 93650; 97162; 97166; C1733; C1894